=== PATIENT | female | born 1990 | race Caucasian/White ===

== ENCOUNTER 2019-02-02 12:35 | Emergency (ER) | payer MEDICAID ==
[2019-02-02] MEDS ORDERED: Alum Hydrox/Mag Hydrox/Simeth 15 ML, Lidocaine 2% 15 ML PO ONE ×2 (13:24)
--- NOTE | 2019-02-02 13:29 | EDM.PDOC ---
ED HPI GENERAL MEDICAL PROBLEM - General Chief Complaint: Cardiovascular Problem Stated Complaint: CHEST PAINS Time Seen by Provider: 02/02/19 13:10 Source of Information: Reports: Patient, RN History Limitations: Reports: Other (no old records, from [place], [place]) - History of Present Illness INITIAL COMMENTS - FREE TEXT/NARRATIVE: 29 yo female here after several minutes of intermittent sharp chest pains. Thinks she was SOB and had pain in her proximal L arm at the time. Has no sx's now. Is not a smoker. Her father at age 71 yrs just had a heart attack and she is concerned that this heart related. Had just eaten when her sx's started, but was only doing light work around the kitchen when it started. Is not diabetic. No HTN. Onset: Today Onset Date: 02/02/19 Onset Time: 11:30 Duration: Minutes:, Intermittent (actually minutes from the beginning to end and was only intermittent for seconds during this interval. ) Location: Reports: Chest, Upper Extremity, Left Quality: Reports: Sharp Severity: Moderate Improves with: Reports: Other (time, now gone.) Worsens with: Reports: None Context: Reports: Other (See HPI) Associated Symptoms: Reports: Chest Pain (sharp, intermittent), Shortness of Breath (mild). Denies: Diaphoresis, Fever/Chills, Nausea/Vomiting, Rash Treatments MUSIC SPECIALIST: Reports: Other (see below) (none) - Related Data Allergies Allergy/AdvReac Type Severity Reaction Status Date / Time azithromycin Allergy Abdominal Verified 02/02/19 12:55 Pain Penicillins Allergy Facial Verified 02/02/19 12:55 Swelling Sulfa (Sulfonamide Allergy Facial Verified 02/02/19 12:55 Antibiotics) Swelling gluten AdvReac Other Verified 02/02/19 12:55 Home Meds: Home Meds Famotidine 40 mg PO DAILY #15 tablet 02/02/19 [Rx] Levothyroxine Sodium [Synthroid] 75 mcg PO ACBREAKFAST 02/02/19 [History] Lisdexamfetamine [Vyvanse] 60 mg PO DAILY 02/02/19 [History] Norethindrone-Ethinyl Estrad [Necon 0.5-35-28 Tablet] 1 tab PO DAILY 02/02/19 [ History] Past Medical History HEENT History: Reports: Impaired Vision Gastrointestinal History: Reports: Celiac Disease Musculoskeletal History: Reports: None Psychiatric History: Reports: ADHD Endocrine/Metabolic History: Reports: Hypothyroidism - Past Surgical History Head Surgeries/Procedures: Reports: None HEENT Surgical History: Reports: None GI Surgical History: Reports: None Endocrine Surgical History: Reports: None Musculoskeletal Surgical History: Reports: Arthroscopic Knee Dermatological Surgical History: Reports: None Social & Family History - Tobacco Use Smoking Status *Q: Former Smoker Used Tobacco, but Quit: Yes Month/Year Tobacco Last Used: 2008 Second Hand Smoke Exposure: No - Caffeine Use Caffeine Use: Reports: None - Recreational Drug Use Recreational Drug Use: No ED ROS GENERAL - Review of Systems Review Of Systems: See Below Constitutional: Reports: No Symptoms HEENT: Reports: No Symptoms Respiratory: Reports: Shortness of Breath (mild). Denies: Wheezing, Pleuritic Chest Pain, Cough, Sputum, Hemoptysis Cardiovascular: Reports: Chest Pain (sharp). Denies: Claudication, Dyspnea on Exertion, Edema, Lightheadedness, Orthopnea, Palpitations Endocrine: Reports: No Symptoms GI/Abdominal: Reports: Abdominal Pain (epigastric ). Denies: Black Stool, Bloody Stool, Constipation, Diarrhea, Decreased Appetite, Difficulty Swallowing , Distension, Flatus, Hematemesis, Hematochezia, Nausea, Vomiting : Reports: No Symptoms Musculoskeletal: Reports: No Symptoms Skin: Reports: No Symptoms Neurological: Reports: No Symptoms ED EXAM, GENERAL - Physical Exam Exam: See Below Exam Limited By: No Limitations General Appearance: Alert, WD/WN, No Apparent Distress Eye Exam: Bilateral Eye: Normal Inspection Ears: Normal External Exam, Normal Canal, Hearing Grossly Normal, Normal TMs Ear Exam: Bilateral Ear: Auricle Normal, Canal Normal, TM normal Nose: Normal Inspection, No Blood Throat/Mouth: Normal Inspection, Normal Lips, Normal Oropharynx, Normal Voice, No Airway Compromise Head: Atraumatic, Normocephalic Neck: Normal Inspection Respiratory/Chest: No Respiratory Distress, Lungs Clear, Normal Breath Sounds, No Accessory Muscle Use, Chest Non-Tender Cardiovascular: Regular Rate, Rhythm, No Edema GI/Abdominal: Normal Bowel Sounds, Soft, No Distention, Tender (epigastric, and lesser RUQ pain). No: Non-Tender Back Exam: Normal Inspection. No: CVA Tenderness (R), CVA Tenderness (L) Extremities: Normal Inspection, Normal Range of Motion, Non-Tender, No Pedal Edema. No: Leg Pain, Limited Range of Motion, Redness Neurological: Alert, Oriented, CN II-XII Intact, Normal Cognition, No Motor/ Sensory Deficits Psychiatric: Normal Affect, Normal Mood Skin Exam: Warm, Dry, Intact, Normal Color, No Rash Course - Vital Signs Text/Narrative:: No significant relief with a GI cocktail and no worsening with walking briskly in the ER(and no desaturation). Last Recorded V/S: Last Vital Signs Temp 37.0 C 02/02/19 12:57 Pulse 98 02/02/19 12:57 Resp 13 02/02/19 12:57 BP 160/92 H 02/02/19 12:57 Pulse Ox 97 02/02/19 12:57 - Orders/Labs/Meds Orders: Active Orders 24 hr Category Date Time Status H. PYLORI STOOL AG, EIA Routine Lab 02/02/19 13:41 Ordered Meds: Medications Discontinued Medications Generic Name Dose Route Start Last Admin Trade Name Nickq PRN Reason Stop Dose Admin Al Hydroxide/Mg Hydroxide 15 0 ml 02/02/19 13:24 02/02/19 13:28 ml/ Lidocaine HCl 15 ml PO 02/02/19 13:25 15 ml ONETIME ONE Administration Departure - Departure Time of Disposition: 14:00 Disposition: Home, Self-Care 01 Condition: Good Clinical Impression: Epigastric pain Prescriptions: Famotidine 40 mg PO DAILY #15 tablet Instructions: Pain Without a Known Cause Referrals: PCP,None [Primary Care Provider] - Forms: ED Department Discharge Additional Instructions: Take famotidine every evening. Take acetaminophen as needed for pain relief. Avoid carbonated beverages, caffeine, alcohol or tobacco products. F/U next week in the clinic to go over the results of your H. pylori test and to see if additional testing is needed. Return if you are a lot worse. - My Orders Last 24 Hours: My Active Orders 02/02/19 13:41 H. PYLORI STOOL AG, EIA Routine - Assessment/Plan Last 24 Hours: My Active Orders 02/02/19 13:41 H. PYLORI STOOL AG, EIA Routine
== END 2019-02-02 14:06 | disposition home or self-care (01) ==
LOC: JP.ED 12:35
DX: R10.13 Epigastric pain (principal); E03.9 Hypothyroidism, unspecified; F90.9 Attention-deficit hyperactivity disorder, unspecified type; Z88.0 Allergy status to penicillin; Z88.2 Allergy status to sulfonamides; Z88.1 Allergy status to other antibiotic agents; Z91.018 Allergy to other foods; Z79.899 Other long term (current) drug therapy; Z87.891 Personal history of nicotine dependence
CPT/HCPCS: 87338; 99284; A9270